=== PATIENT | female | born 1990 | race Caucasian/White ===

== ENCOUNTER 2023-06-19 19:04 | Inpatient (IN) ==
[2023-06-19] MEDS ORDERED: LIDOCAINE 1% LOCAL 20 ML VIAL INFIL PRN (21:55)
[2023-06-19] MEDS: LACTATED RINGER'S 1,000 ML IV PRN (22:07)
[2023-06-19] MEDS ORDERED: BUTORPHANOL TARTRATE 2 MG/ML VIAL IV ONE (22:21)
[2023-06-19 22:38] LABS: Hematocrit (blood only) 37.9 % (37.0-47.0); Hemoglobin 12.1 g/dl (12.0-16.0); Mean Corpuscular Hemoglobin 27.7 pg (25.0-34.0); Mean Corpuscular Hgb Conc 31.9 g/dL (32.0-36.0); Mean Corpuscular Volume 86.7 fL (80.0-100.0); Mean Platelet Volume 10.2 fL (9.4-12.4); Platelet Count 286 K/uL (130-400); RDW Coefficient of Variation 13.4 % (11.5-14.5); RDW Standard Deviation 41.9 fL (36.4-46.3); Red Blood Count 4.37 M/uL (4.20-5.40); White Blood Count 14.21 K/ul (4.8-10.8)
[2023-06-19] MEDS ORDERED: NALBUPHINE HCL 5 MG in SYRINGE 0 ML IV PRN (22:46)
[2023-06-19] MEDS ORDERED: SODIUM CHLORIDE 0.9% PF INJ 10 ML VIAL EPI PRN (22:46)
[2023-06-19] MEDS ORDERED: ePHEDrine sulfate 50 MG/ML AMP IV PRN (22:46)
[2023-06-19] MEDS ORDERED: SODIUM CHLORIDE 0.9% PF INJ 10 ML VIAL EPI STA (22:46)
[2023-06-19] MEDS ORDERED: diphenhydrAMINE 50 MG/ML VIAL IV PRN (22:46)
[2023-06-19] MEDS ORDERED: BUPIVACAINE 0.25% PF 30 ML VIAL EPI PRN (22:46)
[2023-06-19] MEDS ORDERED: ROPIVACAINE 0.5% PF 5 MG/ML 20 ML VIAL EPI PRN (22:46)
[2023-06-19] MEDS ORDERED: NALOXONE HCL 1 MG in SODIUM CHLORIDE 0.9% 1,000 ML IV PRN (22:46)
[2023-06-19] MEDS ORDERED: LIDOCAINE 2% MPF LOCAL 5 ML VIAL EPI PRN (22:46)
[2023-06-19] MEDS ORDERED: NALOXONE HCL 0.4 MG/1 ML VIAL/CARP IV PRN (22:46)
[2023-06-19] MEDS ORDERED: LIDOCAINE 2%/EPINEPHRINE 1:200,000 20 ML PF EPI STA (22:46)
[2023-06-19] MEDS ORDERED: fentANYL 2 MCG/ML BUPIVacaine 0.125%-NSS 100ML BAG EPI PRN (22:46)
[2023-06-19] MEDS ORDERED: fentaNYL citrate PF 100 MCG/2 ML VIAL EPI STA (22:46)
[2023-06-19] MEDS ORDERED: fentaNYL citrate PF 100 MCG/2 ML VIAL EPI PRN (22:46)
[2023-06-19] MEDS ORDERED: BUPIVACAINE 0.25% PF 30 ML VIAL EPI STA (22:46)
--- NOTE | 2023-06-19 22:47 | Anesthesiology Consultation ---
Date of Service June 19, 2023 Assessment & Plan Chart Review Chart Review: Patient NOT seen in Pre Admission Testing and Acceptable Risk for Labor Epidural Consults Requested none ASA ASA2 Proposed Anesthesia Anesthesia Type: Labor Epidural Risk / Benefits Reviewed With: PT / POA / Parent / Guardian, Accepts Plan and Informed Consent Obtained History Height/Weight Height: 5 ft 4 in Weight: 71.214 kg Allergies Allergy/AdvReac Type Severity Reaction Status Date / Time cefixime [From Suprax] Allergy rash Verified 06/19/23 19:15 Medications Home Medications Medication Instructions Recorded Confirmed Last Taken prenat.vits,jaden,yar-dypp-qjzie 1 tab PO DAILY 08/12/22 06/19/23 06/19/23 Active Medications Generic Name Dose Route Start Last Admin Trade Name Freq PRN Reason Stop Dose Admin Lactated Ringer's 1,000 mls @ 125 mls/hr 06/19/23 21:55 06/19/23 22:54 Lr IV 06/21/23 21:54 999 mls/hr .Q8H PRN Infusion L&D Protocol Protocol NPO Date Last Intake of Fluids: 06/19/23 Time Last Intake of Fluids: 21:00 Date Last Intake of Solids: 06/19/23 Time Last Intake of Solids: 17:00 Past Medical History Medical History History of chicken pox Depression with anxiety Exercise / Class Metabolic Activity 1 > 8 Run/Swim/Ski/Tennis Past Family History Family History Mother Breast cancer Aunt Breast cancer Denies family history of Ovarian cancer Colorectal cancer Past Surgical History Surgical History S/P wisdom tooth extraction S/P appendectomy S/P tonsillectomy Past Anesthesia History No Hx of Anesthesia Complications and No Family Hx of Anesthesia Complications History of PONV No Hx of PONV and No Hx of Motion Sickness Social History Smoking Status: Never smoker Do You Dip or Chew Tobacco: No Hx Alcohol Use: No Hx Substance Use: No substance use type: does not use Review of Systems ROS Unobtainable: All systems reviewed & are unremarkable except as noted in HPI & below Physical Exam Vital Signs Last Vital Signs Temp 36.6 C 06/19/23 22:05 Pulse 78 06/19/23 22:43 Resp 20 06/19/23 22:05 BP 131/81 06/19/23 22:06 Pulse Ox 98 06/19/23 22:43 ENMT Mouth: no TMJ abnormality Thyromental Distance: > or= 3.5 Finger Breadths Mallampati Class: II Neck normal visual inspection and trachea midline; neck extension not limited Respiratory normal respiratory effort Auscultation: lungs clear to auscultation bilaterally Cardiovascular Rate/Rhythm: regular rate and regular rhythm Heart Sounds: no murmur Musculoskeletal Spine: normal cervical ROM Extremities: full ROM of extremities Neurologic moves all extremities Psychiatric Orientation: alert and oriented x 3 Testing Laboratory Results 06/19/23 22:23
[2023-06-19] MEDS: BUPIVACAINE 0.25% PF 30 ML VIAL ONE (23:03)
[2023-06-19] MEDS: LIDOCAINE 2%/EPINEPHRINE 1:200,000 20 ML PF ONE (23:03)
[2023-06-19] MEDS: SODIUM CHLORIDE 0.9% PF INJ 10 ML VIAL ONE (23:03)
[2023-06-19] MEDS: fentaNYL citrate PF 100 MCG/2 ML VIAL ONE (23:03)
[2023-06-19] MEDS: fentANYL 2 MCG/ML BUPIVacaine 0.125%-NSS 100ML BAG ONE (23:03)
[2023-06-20] MEDS: OXYTOCIN 30 UNITS/NSS 30 UNITS/500 ML BAG IV PRN (00:34)
--- NOTE | 2023-06-20 00:43 | Delivery Summary ---
Vaginal Delivery Summary Date of Service June 20, 2023 Vaginal Delivery Summary and 1st Degree LAC Spontaneous vaginal delivery the patient is second baby arrived in moderate labor she was observed for 2 hours and admitted that she changed from 1 to 4 cm she requested epidural and then rapidly progressed to fully dilated at that stage membranes were bulging artificial rupture of membranes for clear fluid was performed she pushed over several contractions and then delivered a baby in somewhat occiput posterior position there was a nuchal cord that was passed over her head and then gentle traction on the baby allowed delivery of the shoulders and then body without difficulty live vigorous female infant cord clamped and cut cord blood obtained placenta removed with gentle traction IV Pitocin started small first-degree repair at the posterior fourchette repaired with 3-0 Vicryl sponge and instrument counts correct estimated blood loss 100 mL sponge and instrument counts correct [facility] Vaginal Delivery Charge Delivery Type Details: and 1st Degree LAC
[2023-06-20] MEDS ORDERED: HYDROCORTISONE ACETATE 25 MG SUPP PR PRN (00:51)
[2023-06-20] MEDS ORDERED: ACETAMINOPHEN 325 MG TAB PO PRN (00:51)
[2023-06-20] MEDS ORDERED: OXYTOCIN 30 UNITS/NSS 30 UNITS/500 ML BAG IV PRN (00:51)
[2023-06-20] MEDS: ePHEDrine sulfate 50 MG/ML AMP ONE (00:55)
[2023-06-20] MEDS: DIPHTHER/TETAN/PERTUS Vaccine (Tdap, Adol/Adult) 0.5mL IM ONE (01:24)
--- NOTE | 2023-06-20 01:54 | Anesthesia Procedure Note ---
Date of Service June 20, 2023 Anesthesia Post Epidural Note Vital Signs Vital Signs: Temp Pulse Resp BP Pulse Ox 36.6 C 90 16 109/57 L 97 06/19/23 22:05 06/20/23 01:52 06/20/23 01:37 06/20/23 01:52 06/20/23 00:43 Notes Mental Status: alert / awake / arousable and participated in evaluation Nausea / Vomiting: adequately controlled Pain: adequately controlled Airway Patency, RR, SpO2: stable & adequate BP & HR: stable & adequate Hydration State: stable & adequate Neuraxial Anesthesia: was administered and sensory block is resolving Anesthetic Complications: no major complications apparent Epidural: Removed without complications and With tip intact
[2023-06-20] MEDS: BENZOCAINE 20% SPRY 85 APPLN/85 GM CAN EXT PRN (04:36)
--- NOTE | 2023-06-20 07:31 | Obstetrical Progress Note ---
Date of Service <Maxine Finn MD - Last Filed: 06/20/23 07:31> June 20, 2023 Assessment & Plan <Maxine Finn MD - Last Filed: 06/20/23 07:31> (1) Encounter for assessment: Plan Patient with the above mentioned history and findings was evaluated at bedside and found awake, alert, oriented in all spheres, afebrile, and in no acute distress. Vital signs showed no fever and blood pressures remained stable. Her blood type is B negative, and baby's blood type is rh positive. Rhogam to be administered before patients discharge. Recent hemoglobin is adequate at 12.1 g/dL. Serologies are negative for GBS and patient is Rubella immune. Overall, patient is doing well clinically and meeting the desired milestone for her course. Will continue routine pp course. If she remains stable, anticipate discharge tomorrow. All questions were answered. <Maye Sloan MD, FACOG - Last Filed: 06/20/23 07:32> (1) Encounter for assessment: Subjective <Maxine Finn MD - Last Filed: 06/20/23 07:31> Samina is a 32 y/o female who is now PPD # 1 following at 39 3/7 weeks. Reports feeling well overall this morning. Refers mild abdominal cramping & 2/10 pain well managed on analgesics. Voiding spontaneously. Tolerating meals overnight and able to ambulate some. Has passed gas but no bm yet. Some persistent lochia with some improvement this morning. . Constitutional: no fever, no chills or no sweats Denies shortness of breath or difficulty breathing Cardiovascular: no chest pain or no palpitations Breast: no breast pain Genitourinary (female): no dysuria Neurologic: no headache(s) Denies changes in vision Physical Exam <Maxine Finn MD - Last Filed: 06/20/23 07:31> General: Alert. Oriented to person, time, and place. Afebrile. No acute distress. Cardiac: Regular rate and rhythm, no murmurs/rubs/gallops. Respiratory: Clear to auscultation bilaterally a/p, no wheezes/rales/rhonchi. No increased work of breathing. Symmetrical chest rise. No respiratory distress. Abdomen: Soft, nontender, nondistended. Bowel sounds present. Uterus: Uterine fundus firm, non tender, and palpable above umbilicus (had not u rinated this morning) Lower Extremities: No lower extremity edema or swelling. No deep calf pain. Gonsalo's negative bilaterally. Psych: Euthymic affect. Mood and affect congruence. Regular speech rate and content. Results & Data <Maxine Finn MD - Last Filed: 06/20/23 07:31> Vital Signs (Past 12 Hours) Vital Signs Temp Pulse Pulse Resp BP BP Pulse Ox 06/20/23 03:23 36.6 C 79 18 109/67 97 06/20/23 02:37 36.6 C 16 06/20/23 02:37 76 109/58 L 06/20/23 02:22 83 118/65 06/20/23 02:07 16 06/20/23 02:07 81 105/56 L 06/20/23 01:52 90 109/57 L 06/20/23 01:37 16 06/20/23 01:37 85 108/55 L 06/20/23 01:22 18 06/20/23 01:22 93 H 107/56 L 06/20/23 01:07 18 06/20/23 01:07 101 H 123/58 L 06/20/23 00:52 18 06/20/23 00:52 90 113/57 L 06/20/23 00:43 102 H 97 06/20/23 00:38 18 06/20/23 00:38 104 H 114/87 98 06/20/23 00:33 107 H 100 06/20/23 00:28 132 H 100 06/20/23 00:23 112 H 99 06/20/23 00:18 107 H 99 06/20/23 00:13 71 100 06/20/23 00:10 69 96/53 L 06/20/23 00:08 72 100 06/20/23 00:03 89 100 06/19/23 23:58 85 99 06/19/23 23:57 73 16 97/50 L 06/19/23 23:53 73 100 06/19/23 23:48 73 100 06/19/23 23:43 73 99 06/19/23 23:42 64 18 101/60 06/19/23 23:38 82 99 06/19/23 23:35 96 H 119/67 06/19/23 23:33 110 H 100 06/19/23 23:29 111/60 06/19/23 23:28 118 H 100 06/19/23 23:24 18 06/19/23 23:24 93 H 18 116/65 06/19/23 23:23 90 99 06/19/23 23:20 92 H 117/63 06/19/23 23:18 97 H 98 06/19/23 23:17 91 H 18 113/63 06/19/23 23:15 99 H 118/64 06/19/23 23:13 98 H 98 06/19/23 23:12 95 H 20 102/53 L 06/19/23 23:09 81 20 132/61 06/19/23 23:08 86 98 06/19/23 23:07 95 H 147/66 H 06/19/23 23:06 90 20 160/64 H 06/19/23 23:03 73 149/84 H 97 06/19/23 23:00 68 125/74 06/19/23 22:58 62 98 06/19/23 22:53 82 98 06/19/23 22:48 92 H 97 06/19/23 22:43 78 98 06/19/23 22:38 80 97 06/19/23 22:33 73 97 06/19/23 22:28 73 98 06/19/23 22:27 89 92 06/19/23 22:23 76 99 06/19/23 22:18 94 H 100 06/19/23 22:13 81 99 06/19/23 22:08 76 99 06/19/23 22:06 62 131/81 06/19/23 22:05 20 06/19/23 22:05 36.6 C 20 O2 Del Method 06/20/23 03:23 Room Air 06/20/23 02:37 06/20/23 02:37 06/20/23 02:22 06/20/23 02:07 06/20/23 02:07 06/20/23 01:52 06/20/23 01:37 06/20/23 01:37 06/20/23 01:22 06/20/23 01:22 06/20/23 01:07 06/20/23 01:07 06/20/23 00:52 06/20/23 00:52 06/20/23 00:43 06/20/23 00:38 06/20/23 00:38 06/20/23 00:33 06/20/23 00:28 06/20/23 00:23 06/20/23 00:18 06/20/23 00:13 06/20/23 00:10 06/20/23 00:08 06/20/23 00:03 06/19/23 23:58 06/19/23 23:57 06/19/23 23:53 06/19/23 23:48 06/19/23 23:43 06/19/23 23:42 06/19/23 23:38 06/19/23 23:35 06/19/23 23:33 06/19/23 23:29 06/19/23 23:28 06/19/23 23:24 06/19/23 23:24 06/19/23 23:23 06/19/23 23:20 06/19/23 23:18 06/19/23 23:17 06/19/23 23:15 06/19/23 23:13 06/19/23 23:12 06/19/23 23:09 06/19/23 23:08 06/19/23 23:07 06/19/23 23:06 06/19/23 23:03 06/19/23 23:00 06/19/23 22:58 06/19/23 22:53 06/19/23 22:48 06/19/23 22:43 06/19/23 22:38 06/19/23 22:33 06/19/23 22:28 06/19/23 22:27 06/19/23 22:23 06/19/23 22:18 06/19/23 22:13 06/19/23 22:08 06/19/23 22:06 06/19/23 22:05 06/19/23 22:05 Supervising Physician <Maye Sloan MD, FACOG - Last Filed: 06/20/23 07:32> Co-Signing Physician Notes Resident Physician Supervision Note: I was present with [Name of resident] during the history and exam. I discussed the case with the resident and agree with the findings and plan as documented in the note. Any exceptions or clarifications are listed here: [None] Documented By: Maye Sloan MD, FACOG
[2023-06-20] MEDS: DOCUSATE SODIUM 100 MG CAP PO SCH (07:35)
[2023-06-20] MEDS: IBUPROFEN 600 MG TAB PO PRN (07:35)
[2023-06-20] MEDS: PRENATAL VITAMIN 1 TAB PO SCH (07:35)
[2023-06-21 06:41] LABS: Hemoglobin 11.2 g/dl (12.0-16.0); Mean Corpuscular Hemoglobin 27.5 pg (25.0-34.0); Mean Corpuscular Hgb Conc 31.1 g/dL (32.0-36.0); Mean Corpuscular Volume 88.5 fL (80.0-100.0); Mean Platelet Volume 10.1 fL (9.4-12.4); Platelet Count 251 K/uL (130-400); RDW Coefficient of Variation 13.5 % (11.5-14.5); RDW Standard Deviation 43.8 fL (36.4-46.3); Red Blood Count 4.07 M/uL (4.20-5.40); White Blood Count 11.78 K/ul (4.8-10.8)
--- NOTE | 2023-06-21 07:05 | Obstetrical Progress Note ---
Date of Service <Maxine Finn MD - Last Filed: 06/21/23 07:05> June 21, 2023 Assessment & Plan <Maxine Finn MD - Last Filed: 06/21/23 07:05> (1) Encounter for assessment: Plan Patient with the above mentioned history and findings was evaluated at bedside and found awake, alert, oriented in all spheres, afebrile, and in no acute distress. Vital signs showed no fever and blood pressures remained stable. Her blood type is B negative, and baby's blood type is rh positive. Rhogam given yesterday. Recent hemoglobin is adequate at 11.2 g/dL. Serologies are negative for GBS and patient is Rubella immune. Overall, patient is doing well clinically and meeting the desired milestone for her course. Therefore, will discharge patient today. Patient was counselled on discharge instructions. She is to make an appointment with her OB for 6 weeks after discharge for follow up evaluation. All questions were answered. <Arminda Paul DO - Last Filed: 06/21/23 08:38> (1) Encounter for assessment: Subjective <Maxine Finn MD - Last Filed: 06/21/23 07:05> Samina is a 32 y/o female who is now PPD # 2 following at 39 3/7 weeks. Reports feeling well overall this morning. Refers mild abdominal cramping & 2/10 pain well managed on analgesics. Voiding spontaneously. Tolerating meals overnight and able to ambulate some. Has passed gas but no bm yet. Some persistent lochia with some improvement this morning. . Constitutional: no fever, no chills or no sweats Denies shortness of breath or difficulty breathing Cardiovascular: no chest pain or no palpitations Breast: no breast pain Genitourinary (female): no dysuria Neurologic: no headache(s) Denies changes in vision Physical Exam <Maxine Finn MD - Last Filed: 06/21/23 07:05> General: Alert. Oriented to person, time, and place. Afebrile. No acute distress. Cardiac: Regular rate and rhythm, no murmurs/rubs/gallops. Respiratory: Clear to auscultation bilaterally a/p, no wheezes/rales/rhonchi. No increased work of breathing. Symmetrical chest rise. No respiratory distress. Abdomen: Soft, nontender, nondistended. Bowel sounds present. Uterus: Uterine fundus firm, non tender, and palpable below umbilicus Lower Extremities: No lower extremity edema or swelling. No deep calf pain. Gonsalo's negative bilaterally. Psych: Euthymic affect. Mood and affect congruence. Regular speech rate and content. Results & Data <Maxine Finn MD - Last Filed: 06/21/23 07:05> Vital Signs (Past 12 Hours) Vital Signs Temp Pulse Resp BP O2 Del Method 06/21/23 00:30 36.4 C L 70 16 117/77 Room Air 06/20/23 20:00 36.4 C L 73 14 119/81 Room Air Supervising Physician <Arminda Paul DO - Last Filed: 06/21/23 08:38> Co-Signing Physician Notes Resident Physician Supervision Note: I was present with Dr. Finn during the history and exam. I discussed the case with the resident and agree with the findings and plan as documented in the note. Any exceptions or clarifications are listed here: PPD#1 doing well, desires DC home. Reviewed instructions. Followup 6w PP. Documented By: Arminda Paul DO
[2023-06-21] MEDS ORDERED: bisacodyL 5 MG TABEC PO SCH (20:00)
[2023-06-22] MEDS ORDERED: bisacodyL 10 MG SUPP PR PRN
== END 2023-06-21 13:30 | disposition home or self-care (01) | DRG 807 ==
LOC: OPB 19:04 → 4S1 19:05 → 4E2 06-20 03:00
DX: Z3A.39 39 weeks gestation of pregnancy; O26.893 Other specified pregnancy related conditions, third trimester; O69.81X0 Labor and delivery complicated by cord around neck, without compression, not applicable or unspecified; Z67.91 Unspecified blood type, Rh negative; O70.0 First degree perineal laceration during delivery; Z37.0 Single live birth